=== PATIENT | male | born 1955 | race Caucasian/White ===

== ENCOUNTER 2022-04-21 12:48 | Day surgery (SDC) | payer MEDICARE, OTHER ==
[~2022-04-21 12:48] MED LIST: Lactated Ringers 1,000 ML IV SCH; Sodium Chloride 0.9% 10 ML Syringe FLUSH PRN
[2022-04-21] MEDS: Lactated Ringers 1,000 ML IV SCH (13:09)
[2022-04-21] MEDS ORDERED: Propofol 200 MG/20 ML SDV ONE (14:14)
[2022-04-21] MEDS ORDERED: fentaNYL 100 MCG/2 ML SDV ONE (14:15)
[2022-04-21 16:05] VITALS: BP 124/62; PULSE 55
== END 2022-04-21 16:25 | disposition home or self-care (01) ==
LOC: VM.SDS 12:48
PROVIDERS: ATTEND Family Medicine
DX: R19.5 Other fecal abnormalities (principal); D12.0 Benign neoplasm of cecum; D12.6 Benign neoplasm of colon, unspecified; M10.9 Gout, unspecified; E78.00 Pure hypercholesterolemia, unspecified; D64.9 Anemia, unspecified; Z98.890 Other specified postprocedural states; Z79.899 Other long term (current) drug therapy
CPT/HCPCS: 88305; J2704; J3010; J7120

== ENCOUNTER 2024-05-06 11:50 | Emergency (ER) | payer MEDICARE, OTHER ==
[2024-05-06] MEDS ORDERED: Sodium Chloride 0.9% 10 ML Syringe FLUSH PRN (12:09)
[2024-05-06 12:19] LABS: BASOPHILS PERCENT AUTO 0.1 % (0.2-1.2); EOSINOPHILS ABSOLUTE AUTO 0.1 x10^3/uL (0.0-0.5); EOSINOPHILS PERCENT AUTO 0.8 % (0.0-4.0); HEMATOCRIT 43.3 % (40.0-52.0); IMMATURE GRAN ABSOLUTE AUTO 0.01 x10^3/uL (0.00-0.07); LYMPHOCYTES ABSOLUTE AUTO 1.2 x10^3/uL (1.0-4.8); LYMPHOCYTES PERCENT AUTO 17.5 % (25.0-50.0); MEAN CORPUSCULAR HEMOGLOBIN 31.9 pg (26.0-32.0); MEAN CORPUSCULAR HGB CONC 34.6 g/dL (32.0-36.0); MEAN CORPUSCULAR VOLUME 92.1 fL (78.0-93.0); MONOCYTES ABSOLUTE AUTO 0.6 x10^3/uL (0.0-0.8); NEUTROPHILS ABSOLUTE AUTO 5.1 x10^3/uL (1.8-7.7); NEUTROPHILS PERCENT AUTO 72.5 % (50.0-80.0); PLATELET COUNT,PLT 192 x10^3/uL (130-400); WHITE BLOOD CELL COUNT,WBC 7.1 x10^3/uL (4.0-10.0)
[2024-05-06] MEDS: LORazepam 2 MG/ML SDV IVPUSH ONE (12:20)
[2024-05-06 12:45] LABS: A/G RATIO 0.94; ALANINE AMINOTRANSFERASE,ALT 42 U/L (16-63); ALBUMIN 3.3 g/dL (3.4-5.0); ALKALINE PHOSPHATASE 144 U/L (46-116); ASPARTATE AMNIOTRANSFERASE,AST 25 U/L (15-37); BILIRUBIN TOTAL 0.5 mg/dL (0.2-1.0); BLOOD UREA NITROGEN,BUN 11 mg/dL (7-18); CALCIUM 9.6 mg/dL (8.5-10.1); CARBON DIOXIDE,CO2 24 mmol/L (21-32); CHLORIDE,CL 101 mmol/L (98-107); CREATININE 0.9 mg/dL (0.70-1.30); GLUCOSE RANDOM 111 mg/dL (70-99); POTASSIUM,K 3.6 mmol/L (3.5-5.1); PROTEIN TOTAL,TP 6.8 g/dL (6.4-8.2); SODIUM,NA 139 mmol/L (136-145); TSH ULTRASENSITIVE 3.097 uIU/mL (0.358-3.74)
[2024-05-06 12:46] LABS: ANION GAP 17.6 mmol/L (5-15); ESTIMATED GFR 92 mL/min (>=60)
[2024-05-06 13:13] VITALS: BP 127/64; PULSE 59
== END 2024-05-06 13:11 | disposition home or self-care (01) ==
LOC: SUPCPDRO 11:50 → VM.ED 11:50
DX: F41.9 Anxiety disorder, unspecified (principal); E78.00 Pure hypercholesterolemia, unspecified; Z79.899 Other long term (current) drug therapy
CPT/HCPCS: 80053; 84443; 85025; 96374; 99283; J2060